=== PATIENT | female | born 1995 | race Caucasian/White ===

== ENCOUNTER 2017-12-29 05:47 | Emergency (ER) | payer OTHER ==
[2017-12-29] MEDS: ONDANSETRON 4 MG INJ IV (06:50)
[2017-12-29] MEDS: morphine 2 MG INJ IV (06:50)
[2017-12-29] MEDS: SOD CHLORIDE 0.9% 1,000 ML IV (06:50)
[2017-12-29] MEDS: KETOROLAC 30 MG INJ IV (06:50)
[2017-12-29 07:14] LABS: ADD MAN DIFF? NO
[2017-12-29 07:16] LABS: WHITE BLOOD COUNT 13.7 10^3/ul (4.8-10.8)
[2017-12-29 07:16] LABS: BASOPHILS % 0.1 % (0.0-2.0); EOSINOPHILS % 0.3 % (0.0-7.0); HEMOGLOBIN 13.9 g/dl (12.0-16.0); LYMPHOCYTES # 0.9 10^3/ul (0.8-2.9); LYMPHOCYTES % 6.6 % (18.0-55.0); MEAN CORPUSCULAR HEMOGLOBIN 25.3 pg (29.0-33.0); MEAN CORPUSCULAR HGB CONC 33.9 g/dl (32.0-37.0); MEAN CORPUSCULAR VOLUME 74.7 fl (72.0-104.0); MEAN PLATELET VOLUME 10.7 fl (7.4-10.4); MONOCYTE # 0.5 10^3/ul (0.3-0.9); MONOCYTES % 3.7 % (0.0-13.0); NEUTROPHIL # 12.2 10^3/ul (1.6-7.5); NEUTROPHILS % 88.9 % (30.0-74.0); PLATELET COUNT 310 10^3/UL (140-415); RED BLOOD COUNT 5.49 10^6/ul (4.20-5.40); RED CELL DISTRIBUTION WIDTH 16.4 % (11.5-14.5)
[2017-12-29 07:21] LABS: ADD UMIC NO; UR ASCORBIC ACID NEGATIVE (NEGATIVE); UR BILIRUBIN (Dip) NEGATIVE (NEGATIVE); UR BLOOD (Dip) NEGATIVE (NEGATIVE); UR CLARITY CLEAR (CLEAR); UR COLOR YELLOW (YELLOW); UR GLUCOSE (Dip) NEGATIVE (NEGATIVE); UR KETONES (Dip) 2+ mg/dL (NEGATIVE); UR LEUKOCYTE ESTERASE (Dip) NEGATIVE Leu/ul (NEGATIVE); UR NITRITE (Dip) NEGATIVE (NEGATIVE); UR SPECIFIC GRAVITY (Dip) 1.021 (1.003-1.030); UR TOTAL PROTEIN (Dip) NEGATIVE (NEGATIVE); UR UROBILINOGEN (Dip) NEGATIVE (NEGATIVE)
[2017-12-29 07:43] LABS: ALANINE AMINOTRANSFERASE 23 IU/L (13-69); ALBUMIN 5.1 g/dl (3.3-4.9); ALBUMIN/GLOBULIN RATIO 1.45; ALKALINE PHOSPHATASE 118 IU/L (42-121); ANION GAP 21 (8-16); ASPARTATE AMINO TRANSFERASE 17 IU/L (15-46); BILIRUBIN,INDIRECT 0.8 mg/dl (0-1.1); BILIRUBIN,TOTAL 0.8 mg/dl (0.2-1.3); BLOOD UREA NITROGEN 10 mg/dl (7-20); CARBON DIOXIDE 22 mmol/L (21-31); CHLORIDE 104 mmol/L (97-110); CREATININE 0.65 mg/dl (0.44-1.00); GLUCOSE 96 mg/dl (70-220); LIPASE 37 U/L (23-300); POTASSIUM 3.7 mmol/L (3.5-5.1); SODIUM 143 mmol/L (135-144); TOTAL PROTEIN 8.6 g/dl (6.1-8.1)
== END 2017-12-29 08:15 | disposition home or self-care (01) ==
LOC: FTE 05:47
DX: K29.70 Gastritis, unspecified, without bleeding (principal)
CPT/HCPCS: 36415; 74176; 80053; 81003; 81025; 83690; 85025; 96374; 96375; 99285-25

== ENCOUNTER 2018-06-15 08:43 | Emergency (ER) | payer OTHER ==
[2018-06-15] MEDS: RANITIDINE 150 MG TAB PO (09:44)
[2018-06-15] MEDS: FLUCONAZOLE 150 MG TAB PO (10:25)
== END 2018-06-15 10:49 | disposition home or self-care (01) ==
LOC: FTE 08:43
DX: R10.30 Lower abdominal pain, unspecified (principal)
CPT/HCPCS: 81025; 99282

== ENCOUNTER 2018-11-09 20:09 | Emergency (ER) | payer OTHER ==
[2018-11-10] MEDS: DIAZEPAM 5 MG TAB PO (00:13)
[2018-11-10] MEDS: KETOROLAC 60 MG INJ IM (00:14)
== END 2018-11-10 00:44 | disposition home or self-care (01) ==
LOC: FTE 20:09
DX: M54.5 Low back pain (principal)
CPT/HCPCS: 81025; 96372; 99284-25